=== PATIENT | male | born 1950 | race Caucasian/White ===

== ENCOUNTER 2018-12-19 10:47 | Emergency (ER) | payer OTHER ==
[2018-12-19] MEDS ORDERED: ASPIRIN 81 MG CHEWABLE TABLET ONE (11:05)
[2018-12-19] MEDS ORDERED: NITROGLYCERIN 0.4 MG/TAB SL ONE (11:05)
[2018-12-19] MEDS ORDERED: MORPHINE 4 MG/ML SYR ONE (11:22)
[2018-12-19 11:28] LABS: Basophils % 0.6 % (0-1.3); Hematocrit 41.1 % (39.6-49.0); Lymphocytes % 12.2 % (15.3-44.8); MPV 11.6 fL (7.6-11.3); RBC Red Blood Cell Count 4.33 M/uL (4.33-5.43)
[2018-12-19] MEDS ORDERED: LIDOCAINE VISCOUS 2% SOLN 15 ML UDC ONE (11:28)
[2018-12-19] MEDS ORDERED: MAGNE/ALUM HYDROXD 30 ML UCUP ONE (11:28)
[2018-12-19 11:30] LABS: Protime INR 1.06
[2018-12-19 11:49] LABS: Albumin 4.2 g/dL (3.4-5.0); Bilirubin Direct 0.3 mg/dL (0-0.2); Magnesium 2.4 mg/dL (1.8-2.4); Potassium 3.9 mmol/L (3.5-5.1); Protein, Total 8.2 g/dL (6.4-8.2); Troponin (Emerg Dept Use Only) 0.07 ng/mL (0.0-0.045)
--- NOTE | 2018-12-19 11:56 | RAD REPORT ---
EXAM DESCRIPTION: RAD - Chest Single View - 12/19/2018 11:46 am CLINICAL HISTORY: CHEST PAIN Chest pain. COMPARISON: No comparisons FINDINGS: Portable technique limits examination quality. The lungs are grossly clear. Small pleural effusion. The heart is upper limit normal in size with gutierrez rnotomy wires present. No displaced fractures.Multi lead pacer/defibrillator device is present. IMPRESSION: No acute intrathoracic process suspected.
[2018-12-19] MEDS ORDERED: ENOXAPARIN 100 MG/ML SYR SQ ONE (12:25)
--- NOTE | 2018-12-19 12:33 | EKG ---
Test Date: 2018-12-19 Test Time: 10:49:21 Judo Teacher: LA MEASUREMENT RESULTS: Intervals: Rate: 97 DE: 190 QRSD: 112 QT: 378 QTc: 480 [place]: P: 55 DE: 190 QRS: 69 T: 204 INTERPRETIVE STATEMENTS: Normal sinus rhythm Possible Left atrial enlargement Cannot rule out Inferior infarct, age undetermined Anteroseptal infarct, age undetermined Intraventricular conduction delay Abnormal ECG Compared to ECG 03/31/2012 14:26:58 Myocardial infarct finding now present First degree AV block no longer present Right-axis deviation no longer present Electronically Signed On 12-19-18 12:33:17 CDT by Eldon Chacon
--- NOTE | 2018-12-19 15:19 | ER ---
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 11:00 Transition of care: patient was not received from another setting of care. Onset of jl7 symptoms was December 19, 2018 at 10:00. Risk Assessment: Do you want to hurt yourself or someone else? Patient reports no desire to harm self or others. Initial Sepsis Screen: Does the patient meet any 2 criteria? No. Patient's initial sepsis screen is negative. Does the patient have a suspected source of infection? No. Patient's initial sepsis screen is negative. Care prior to arrival: 3 nitro SL, pt states "They are a few years old so I'm not sure if they're any good.". 11:00 Method Of Arrival: Ambulatory jl7 11:01 Acuity: JORGE 2 la1 Historical: - Allergies: 11:23 No Known Allergies; jl7 - Home Meds: 11:23 bumetanide 1 mg Oral tab 1 tab 2 times per day [Active]; clopidogrel 75 mg oral tab 1 jl7 tab once daily [Active]; ezetimibe oral oral [Active]; Insulin: Regular Sub-Q [Active]; losartan 25 mg oral tab [Active]; midodrine 10 mg oral tab [Active]; tamsulosin 0.4 mg oral cp24 [Active]; aspirin 81 mg Oral chew [Active]; - PMHx: 11:23 Diabetes - IDDM; Hypertension; jl7 11:24 Myocardial infarction; jl7 - PSHx: 11:23 CABG; Heart stents; jl7 - Immunization history:: Adult Immunizations unknown. - Social history:: Smoking status: Patient/guardian denies using tobacco. - Ebola Screening: : No symptoms or risks identified at this time. Screenin:55 Abuse screen: Denies threats or abuse. Denies injuries from another. Nutritional jl7 screening: No deficits noted. Tuberculosis screening: No symptoms or risk factors identified. Fall Risk IV access (20 points). Total Gardner Fall Scale indicates No Risk (0-24 pts). Assessment: 10:55 General: Appears distressed, uncomfortable, ill, Behavior is cooperative, appropriate jl7 for age, anxious. Pain: Complains of pain in anterior aspect of left upper chest Pain radiates to left clavicle, left lateral anterior chest and left arm and left jaw Pain currently is 10 out of 10 on a pain scale. Quality of pain is described as pressure, radiating, squeezing, Pain began 1 hour ago. Is continuous. Neuro: Level of Consciousness is awake, alert, obeys commands, Oriented to person, place, time, situation. Cardiovascular: Heart tones present pt clammy. Chest pain is described as severe. Respiratory: Airway is patent Respiratory effort is even, unlabored, Respiratory pattern is regular, symmetrical, tachypnea Breath sounds are clear bilaterally. Derm: Skin is clammy, Skin is pale, Skin temperature is cool. 11:31 Reassessment: Pt reports increased pain, placed on nasal canula 2 lpm, 3rd nitro jl7 administered at this time. 11:45 Reassessment: Inspector Missile is Dr. Marlee Mistry, [phone]. 12:22 Reassessment: Scott at bedside discussing plan of care. jl7 13:00 Reassessment: Patient appears in no apparent distress at this time. Patient and/or jl7 family updated on plan of care and expected duration. Pain level reassessed. Patient is alert, oriented x 3, equal unlabored respirations, skin warm/dry/pink. Patient states feeling better. Patient states symptoms have improved. 14:00 Reassessment: Patient appears in no apparent distress at this time. No changes from jl7 previously documented assessment. Patient and/or family updated on plan of care and expected duration. Pain level reassessed. Patient is alert, oriented x 3, equal unlabored respirations, skin warm/dry/pink. 14:44 Reassessment: JUANA Chavez at bedside updating pt on repeat troponin level of 2.94, jl7 discussing plan of care at this time. 15:30 Reassessment: Patient appears in no apparent distress at this time. No changes from jl7 previously documented assessment. Patient and/or family updated on plan of care and expected duration. Pain level reassessed. Patient is alert, oriented x 3, equal unlabored respirations, skin warm/dry/pink. 16:30 Reassessment: Patient appears in no apparent distress at this time. Patient and/or jl7 family updated on plan of care and expected duration. Pain level reassessed. Patient is alert, oriented x 3, equal unlabored respirations, skin warm/dry/pink. 17:27 Reassessment: Patient appears in no apparent distress at this time. Patient and/or jl7 family updated on plan of care and expected duration. Pain level reassessed. Patient is alert, oriented x 3, equal unlabored respirations, skin warm/dry/pink. Vital Signs: 10:50 BP 178 / 100; Pulse 95; Resp 21 S; Pulse Ox 100% on R/A; Pain 8/10; jl7 11:00 BP 155 / 85; Pulse 91; Resp 19 S; Pulse Ox 100% on R/A; Pain 10/10; jl7 11:15 BP 143 / 81; Pulse 89; Resp 22 S; Pulse Ox 100% on R/A; jl7 11:30 BP 128 / 80; Pulse 95; Resp 18 S; Pulse Ox 100% on 2 lpm NC; Pain 9/10; jl7 11:45 BP 132 / 75; Pulse 88; Resp 18 S; Pulse Ox 100% on 2 lpm NC; Pain 7/10; jl7 12:17 Weight 90.72 kg (R); jl7 12:17 BP 125 / 68; Pulse 78; Resp 17 S; Pulse Ox 100% on 2 lpm NC; jl7 13:00 BP 123 / 68; Pulse 75; Resp 17 S; Pulse Ox 100% on 2 lpm NC; jl7 14:00 BP 126 / 72; Pulse 75; Resp 19; Pulse Ox 100% on 2 lpm NC; jl7 14:40 BP 123 / 79; Pulse 73; Resp 19 S; Pulse Ox 99% on 2 lpm NC; Pain 2/10; jl7 15:30 BP 140 / 79; Pulse 75; Resp 19; Pulse Ox 99% on 2 lpm NC; jl7 16:30 BP 128 / 70; Pulse 75; Resp 16 S; Pulse Ox 99% on R/A; jl7 17:27 BP 122 / 69; Pulse 72; Resp 16 S; Pulse Ox 100% ; jl7 ED Course: 10:47 Patient arrived in ED. as 10:55 Initial lab(s) drawn, by ED staff, sent to lab. Inserted saline lock: 20 gauge in right jl7 forearm, using aseptic technique. Blood collected. 10:55 Patient has correct armband on for positive identification. Placed in gown. Bed in low jl7 position. Call light in reach. Side rails up X 1. mottler machine feeder on. Pulse ox on. NIBP on. 10:56 Anna Nathan RN is Primary Nurse. jl7 11:01 Triage completed. la1 11:03 Scott Ye PA is PHCP. jr8 11:03 Damien Harris MD is Attending Physician. jr8 11:15 Arm band placed on right wrist. jl7 11:21 EKG done, by breeding technician. reviewed by Scott ARIAS. at1 11:34 Oxygen administration via nasal cannula \\T\\ 2L/min. jl7 11:48 XRAY Chest (1 view) In Process Unspecified. EDMS 14:20 Repeat lab(s) drawn. by me, sent to lab. jl7 14:42 Notified Nurse Practitioner and/or Physician Management Sme of a critical lab result(s), hb Trop 2.94. 16:30 No provider procedures requiring assistance completed. jl7 18:00 Patient transferred, IV remains in place. intact, No redness/swelling at site. jl7 Administered Medications: 11:04 Drug: Aspirin Chewable Tablet 243 mg Route: PO; la1 11:47 Follow up: Response: No adverse reaction jl7 11:05 Drug: Nitroglycerin 0.4 mg Route: Sublingual; la1 11:15 Drug: Nitroglycerin 0.4 mg Route: Sublingual; la1 11:25 Drug: morphine 4 mg Route: IVP; Site: right forearm; la1 11:47 Follow up: Response: No adverse reaction; Pain is decreased jl7 11:29 Drug: GI Cocktail without - (Maalox Suspension 30 ml, Lidocaine Liquid 2 % 15 hb ml) Route: PO; 11:46 Follow up: Response: No adverse reaction jl7 11:32 Drug: Nitroglycerin 0.4 mg Route: Sublingual; jl7 11:47 Follow up: Response: No adverse reaction; Pain is decreased jl7 12:31 Drug: Lovenox 1 mg/kg Route: Sub-Q; Site: left upper abdomen; jl7 14:38 Follow up: Response: No adverse reaction jl7 Outcome: 15:18 ER care complete, transfer ordered by . 8 18:00 Transferred by ground EMS to [facility], Transfer form completed. jl7 18:00 Condition: stable 18:00 Discharge instructions given to patient, Instructed on the need for transfer, Demonstrated understanding of instructions. 18:37 Patient left the ED. jl7 Signatures: Dispatcher [employer] EDMS Gladys Armenta Josh, PA PA jr8 Angela Burton, embalmer apprentice EKG Tat1 Iam Rader RN RN la1 Yessy Gudino RN RN Anna Clark RN RN jl7 Corrections: (The following items were deleted from the chart) 11:46 11:00 BP 155 / 85; Pulse 91bpm; Resp 19bpm; Spontaneous; Pulse Ox 100% RA; jl7 jl7 11:46 11:15 BP 143 / 81; Pulse 89bpm; Resp 22bpm; Spontaneous; Pulse Ox 100% RA; jl7 jl7
--- NOTE | 2018-12-19 15:19 | EDPHYS ---
Physician Documentation [facility] Name: Jaret Lara Age: 68 yrs Sex: Male : 1950 Arrival Date: 12/19/2018 Time: 10:47 Bed 2 Private MD: ED Physician Damien Harris HPI: 12/19 12:20 This 68 yrs old Male presents to ER via Unassigned with complaints of Chest jr8 Pain. 12:37 The patient or guardian reports chest pain that is located primarily in the anterior jr8 chest wall, left. Onset: acutely, today. The pain radiates to the left arm, the left shoulder. Associated signs and symptoms: Pertinent positives: shortness of breath. The chest pain is described as a heaviness, a pressure. Duration: The patient or guardian reports a single episode, that is still ongoing. Modifying factors: The symptoms are alleviated by NTG, X3. the symptoms are aggravated by nothing. Severity of pain: At its worst the pain was moderate in the emergency department the pain has improved mildly. The patient has not experienced similar symptoms in the past. The patient has been recently seen by a physician:. Patient with significant heart history. X2 triple bypass. Stent placement about 1 month ago. Stated that he has had AK in past but was usually with shortness of breath. Today have sudden moderate CP that is not going away. Took x3 old nitro that he had with only minimal relief. Historical: - Allergies: 11:23 No Known Allergies; jl7 - Home Meds: 11:23 bumetanide 1 mg Oral tab 1 tab 2 times per day [Active]; clopidogrel 75 mg oral tab 1 jl7 tab once daily [Active]; ezetimibe oral oral [Active]; Insulin: Regular Sub-Q [Active]; losartan 25 mg oral tab [Active]; midodrine 10 mg oral tab [Active]; tamsulosin 0.4 mg oral cp24 [Active]; aspirin 81 mg Oral chew [Active]; - PMHx: 11:23 Diabetes - IDDM; Hypertension; jl7 11:24 Myocardial infarction; jl7 - PSHx: 11:23 CABG; Heart stents; jl7 - Immunization history:: Adult Immunizations unknown. - Social history:: Smoking status: Patient/guardian denies using tobacco. - Ebola Screening: : No symptoms or risks identified at this time. ROS: 12:37 Eyes: Negative for injury, pain, redness, and discharge, ENT: Negative for injury, jr8 pain, and discharge, Neck: Negative for injury, pain, and swelling, Abdomen/GI: Negative for abdominal pain, nausea, vomiting, diarrhea, and constipation, Back: Negative for injury and pain, MS/Extremity: Negative for injury and deformity, Skin: Negative for injury, rash, and discoloration, Neuro: Negative for headache, weakness, numbness, tingling, and seizure. 12:37 Cardiovascular: Positive for chest pain, Negative for edema, orthopnea, palpitations, paroxysmal nocturnal dyspnea. 12:37 Respiratory: Positive for shortness of breath. Exam: 12:37 Eyes: Pupils equal round and reactive to light, extra-ocular motions intact. Lids and jr8 lashes normal. Conjunctiva and sclera are non-icteric and not injected. Cornea within normal limits. Periorbital areas with no swelling, redness, or edema. ENT: Nares patent. No nasal discharge, no septal abnormalities noted. Tympanic membranes are normal and external auditory canals are clear. Oropharynx with no redness, swelling, or masses, exudates, or evidence of obstruction, uvula midline. Mucous membranes moist. Neck: Trachea midline, no thyromegaly or masses palpated, and no cervical lymphadenopathy. Supple, full range of motion without nuchal rigidity, or vertebral point tenderness. No Meningismus. Cardiovascular: Regular rate and rhythm with a normal S1 and S2. No gallops, murmurs, or rubs. Normal PMI, no JVD. No pulse deficits. Respiratory: Lungs have equal breath sounds bilaterally, clear to auscultation and percussion. No rales, rhonchi or wheezes noted. No increased work of breathing, no retractions or nasal flaring. Abdomen/GI: Soft, non-tender, with normal bowel sounds. No distension or tympany. No guarding or rebound. No evidence of tenderness throughout. Back: No spinal tenderness. No costovertebral tenderness. Full range of motion. Skin: Warm, dry with normal turgor. Normal color with no rashes, no lesions, and no evidence of cellulitis. MS/ Extremity: Pulses equal, no cyanosis. Neurovascular intact. Full, normal range of motion. Neuro: Awake and alert, GCS 15, oriented to person, place, time, and situation. Cranial nerves II-XII grossly intact. Motor strength 5/5 in all extremities. Sensory grossly intact. Cerebellar exam normal. Normal gait. Vital Signs: 10:50 BP 178 / 100; Pulse 95; Resp 21 S; Pulse Ox 100% on R/A; Pain 8/10; jl7 11:00 BP 155 / 85; Pulse 91; Resp 19 S; Pulse Ox 100% on R/A; Pain 10/10; jl7 11:15 BP 143 / 81; Pulse 89; Resp 22 S; Pulse Ox 100% on R/A; jl7 11:30 BP 128 / 80; Pulse 95; Resp 18 S; Pulse Ox 100% on 2 lpm NC; Pain 9/10; jl7 11:45 BP 132 / 75; Pulse 88; Resp 18 S; Pulse Ox 100% on 2 lpm NC; Pain 7/10; jl7 12:17 Weight 90.72 kg (R); jl7 12:17 BP 125 / 68; Pulse 78; Resp 17 S; Pulse Ox 100% on 2 lpm NC; jl7 13:00 BP 123 / 68; Pulse 75; Resp 17 S; Pulse Ox 100% on 2 lpm NC; jl7 14:00 BP 126 / 72; Pulse 75; Resp 19; Pulse Ox 100% on 2 lpm NC; jl7 14:40 BP 123 / 79; Pulse 73; Resp 19 S; Pulse Ox 99% on 2 lpm NC; Pain 2/10; jl7 15:30 BP 140 / 79; Pulse 75; Resp 19; Pulse Ox 99% on 2 lpm NC; jl7 16:30 BP 128 / 70; Pulse 75; Resp 16 S; Pulse Ox 99% on R/A; jl7 17:27 BP 122 / 69; Pulse 72; Resp 16 S; Pulse Ox 100% ; jl7 MDM: 11:03 Patient medically screened. jr8 12:41 HEART Score: History: Moderately Suspicious (1), ECG: Non specific repolarization jr8 disturbance / LBTB / PM (1), Age: > or = 65 years (2), Risk Factors: > or = 3 Risk factors for atherosclerotic disease (2), [Hypercholesterolemia] [Hypertension] [DM] Troponin: > 1 and < 3 x normal limit (1), Total Score = 6. The patient was given aspirin in the Emergency Department. Data reviewed: vital signs, nurses notes, lab test result(s), EKG, radiologic studies, plain films. Data interpreted: Pulse oximetry: on room air is 100 %. Interpretation: normal. Counseling: I had a detailed discussion with the patient and/or guardian regarding: the historical points, exam findings, and any diagnostic results supporting the discharge/admit diagnosis, lab results, radiology results, the need to transfer to another facility, continuity of care . 13:34 ED course: [facility] accepted patient. Waiting to see if CCU is available . subha 13:59 ED course: [facility] had to decline because they have no CCU beds. Patient now wanting to subha go home. Explained to him that we cannot fully r/o cardiac related CP and that he has such a high risk along with story today that it would by no means be advised going home. Patient understood the risks but still wanting to go home. Patient stated that he always has some mild elevation in his cardiac enzymes. Feels back to baseline after GI cocktail. Asked if we could at least draw another troponin on him which he said was fine with but could absolutely not stay do to some outside reason. 15:16 ED course: Patient now has markedly more elevated Troponin. Convinced patient to be subha transferred to [facility] since [facility] no beds and would not accept to another ICU or different facility . 16:47 ED course: [facility] had to deny secondary to capacity as well. Now on the phone with subha [facility] under another cardiology group who has beds and accepted patient. 12/19 11:05 Order name: Basic Metabolic Panel; Complete Time: 12:16 [facility] 12/19 11:05 Order name: CBC with Diff; Complete Time: 12:16 12/19 11:05 Order name: LFT's; Complete Time: 12:16 [facility] 12/19 11:05 Order name: Magnesium; Complete Time: 12:16 [facility] 12/19 11:05 Order name: NT PRO-BNP; Complete Time: 12:16 [facility] 12/19 11:05 Order name: PT-INR; Complete Time: 12:16 [facility] 12/19 11:05 Order name: Troponin (emerg Dept Use Only); Complete Time: 12:16 [facility] 12/19 11:05 Order name: XRAY Chest (1 view); Complete Time: 12:16 12/19 13:59 Order name: Troponin (emerg Dept Use Only); Complete Time: 15:03 12/19 11:05 Order name: EKG; Complete Time: 11:12/19 11:05 Order name: Cardiac monitoring; Complete Time: :12/19 11:05 Order name: EKG - Nurse/Tech; Complete Time: 12/19 11:05 Order name: IV Saline Lock; Complete Time: 12/19 11:05 Order name: Labs collected and sent; Complete Time: 12/19 11:05 Order name: O2 Per Protocol; Complete Time: 12/19 11:05 Order name: O2 Sat Monitoring; Complete Time: 12/19 13:15 Order name: EKG Electrocardiogram; Complete Time: 17:00 EDMS 12/19 13:43 Order name: Diet Heart Healthy; Complete Time: 13:43 jl7 Administered Medications: 11:04 Drug: Aspirin Chewable Tablet 243 mg Route: PO; la1 11:47 Follow up: Response: No adverse reaction jl7 11:05 Drug: Nitroglycerin 0.4 mg Route: Sublingual; la1 11:15 Drug: Nitroglycerin 0.4 mg Route: Sublingual; la1 11:25 Drug: morphine 4 mg Route: IVP; Site: right forearm; la1 11:47 Follow up: Response: No adverse reaction; Pain is decreased jl7 11:29 Drug: GI Cocktail without - (Maalox Suspension 30 ml, Lidocaine Liquid 2 % 15 hb ml) Route: PO; 11:46 Follow up: Response: No adverse reaction jl7 11:32 Drug: Nitroglycerin 0.4 mg Route: Sublingual; jl7 11:47 Follow up: Response: No adverse reaction; Pain is decreased jl7 12:31 Drug: Lovenox 1 mg/kg Route: Sub-Q; Site: left upper abdomen; jl7 14:38 Follow up: Response: No adverse reaction jl7 Disposition: 12/20 07:09 Co-signature as Attending Physician, Damien Harris MD. rn Disposition: 12/19/18 15:18 Transfer ordered to Other Acute Care Facility. Diagnosis is Non-ST elevation (NSTEMI) myocardial infarction. - Reason for transfer: Higher level of care. - Accepting physician is Dr. Crow. - Condition is Stable. - Problem is new. - Symptoms have improved. Signatures: Dispatcher [employer] EDMS Damien Harris MD MD rn Roszak, Josh, PA PA jr8 Iam Rader, RN RN la1 Yessy Gudino, RN RN Anna Clark RN RN jl7 Corrections: (The following items were deleted from the chart) 12/19 14:02 13:59 ED course: [facility] had to decline because they have no CCU beds. Patient now jr8 wanting to go home. Explained to him that we cannot fully r/o cardiac related CP. Patient stated that he always has some mild elevation in his cardiac enzymes. Feels back to baseline after GI cocktail. Asked if we could at least draw another troponin on him which he said was fine but could absolutely not stay do to some outside reason. jr8 16:54 16:47 ED course: [facility] had to deny secondary to capacity as well. Now on the phone jr8 with [facility]. jr8 16:55 15:18 12/19/2018 15:18 Transfer ordered to [facility]. Diagnosis is jr8 Non-ST elevation (NSTEMI) myocardial infarction. Reason for transfer: Higher level of care. Accepting physician is [facility] Condition is Stable. Problem is new. Symptoms have improved. jr8 18:37 16:55 12/19/2018 15:18 Transfer ordered to Other Acute Care Facility. Diagnosis is jl7 Non-ST elevation (NSTEMI) myocardial infarction. Reason for transfer: Higher level of care. Accepting physician is Dr. Crow. Condition is Stable. Problem is new. Symptoms have improved. jr8
--- NOTE | 2018-12-19 15:51 | EKG ---
Test Date: 2018-12-19 Test Time: 11:14:52 Cattle Trader: FREDDY MEASUREMENT RESULTS: Intervals: Rate: 90 MT: 182 QRSD: 114 QT: 398 QTc: 486 [place]: P: 58 MT: 182 QRS: 77 T: 229 INTERPRETIVE STATEMENTS: Sinus rhythm with occasional premature ventricular complexes and premature atrial complexes Possible Left atrial enlargement ST & T wave abnormality, consider inferior ischemia Anterior infarct, cited previously Prolonged QT Abnormal ECG Compared to ECG 12/19/2018 10:49:21 Atrial premature complex(es) now present Ventricular premature complex(es) now present Intraventricular conduction delay no longer present Electronically Signed On 12-19-18 15:50:35 CDT by Eldon Chacon
[2018-12-19 19:03] VITALS: BP 122/69; O2SAT 100
== END 2018-12-19 18:37 ==
LOC: ER 10:47
DX: I21.4 Non-ST elevation (NSTEMI) myocardial infarction (principal); I10 Essential (primary) hypertension; E11.9 Type 2 diabetes mellitus without complications; Z79.4 Long term (current) use of insulin; I25.2 Old myocardial infarction
CPT/HCPCS: 93005 ×2; 85025; 80048; 36415; 83735; 85610; 80076; 84484 ×2; 83880; 71045; 96372; 96374; 99285; J1650